=== PATIENT | female | born 2000 | race Hispanic/Latino ===

== ENCOUNTER 2022-05-20 21:37 | Emergency (ER) | payer OTHER ==
--- OUTSIDE RECORDS SUMMARY | 2022-05-20 21:41 | XMS REPORT | Continuity of Care Document ---
:2000 Author Organization [facility] t Address [address] [place] [address] Care Team Providers Name Role Phone Galdino Robles Josiah Primary Care Physician SIRI TORRES Attending Clinician Unavailable Siri Goel Attending Clinician Niurka Clayton MD Attending Clinician Doctor Unassigned, [place] Attending Clinician Unavailable Provider, Kr[facility] Attending Clinician Unavailable NIURKA CLAYTON Attending Clinician Unavailable Radiology Attending Clinician Unavailable RADIOLOGY Attending Clinician Unavailable Payers Payer Name Policy Type Policy Number Effective Date Expiration Date [place] [employer] [place] [id number] 2021 [employer] 00:00:00 Problems Condition Condition Condition Status Onset Resolution Last Treating Co mments Source Name Details Category Date Date Treatment Clinician Date No known No known Disease Unive rs active active ity of problems problems [facility] Allergies, Adverse Reactions, Alerts Allergy Allergy Status Severity Reaction(s) Onset Inactive Treating Comm ents Source Name Type Date Date Clinician NO KNOWN Drug Active Univers ALLERGIE Class ity of S [facility] Social History Social Habit Start Date Stop Date Quantity Comments Source Exposure to 2022-02-27 2022-03-09 Not sure [facility] SARS-CoV-2 (event) 00:00:00 15:53:00 Medica l Branch Alcohol intake 2022-02-22 2022-02-22 0 /d [facility] 00:00:00 00:00:00 Medical Branch Sex Assigned At [birth year] [facility] [place] 00:00:00 00:00:00 Medical Branch Smoking Status Start Date Stop Date Source Never smoker [facility] Medical Branch Medications Ordered Filled Start Stop Current Ordering Indication Dosage Frequency Signature Comments Components Source Medication Medication Date Date Medication? Clinician (SIG) Name Name FLUoxetine Yes 20mg Take 20 mg U nivers (PROZAC) 20 6-06 by mouth ity of mg capsule 16:01: daily. [place] [address] Medical Branch traZODone Yes 50mg Take 50 mg Un matias 50 mg 6-06 by mouth ity of tablet 16:01: at [place] [address] bedtime. Medical Branch FLUoxetine Yes 20mg Take 20 mg U nivers (PROZAC) 20 6-06 by mouth ity of mg capsule 16:01: daily. [address] Branch traZODone Yes 50mg Take 50 mg Un matias 50 mg 6-06 by mouth ity of tablet 16:01: at [place] [address] bedtime. Medical Branch FLUoxetine Yes 20mg Take 20 mg U nivers (PROZAC) 20 6-06 by mouth ity of mg capsule 16:01: daily. [address] Branch traZODone Yes 50mg Take 50 mg Un matias 50 mg 6-06 by mouth ity of tablet 16:01: at [place] [address] bedtime. Medical Branch FLUoxetine Yes 20mg Take 20 mg U nivers (PROZAC) 20 6-06 by mouth ity of mg capsule 16:01: daily. [address] Branch traZODone Yes 50mg Take 50 mg Un matias 50 mg 6-06 by mouth ity of tablet 16:01: at [place] [address] bedtime. Medical Branch FLUoxetine Yes 20mg Take 20 mg U nivers (PROZAC) 20 6-06 by mouth ity of mg capsule 16:01: daily. [address] Branch traZODone Yes 50mg Take 50 mg Un matias 50 mg 6-06 by mouth ity of tablet 16:01: at [place] [address] bedtime. Medical Branch ondansetron Yes [id number] 4mg Take 1 Univers 4 mg 5-22 tablet by ity of disintegrat 00:00: mouth [place] [facility] tablet 00 every 8 Medica l (eight) Branch hours as needed for Nausea and Vomiting (N/V). methocarbam 2022-0 Yes [id number] 500mg Take 1 Univers oL 500 mg 5-22 tablet by ity o f tablet 00:00: mouth 4 [place] 00 (four) Medical times Branch daily. ondansetron 2022-0 Yes [id number] 4mg Take 1 Univers 4 mg 5-22 tablet by ity of disintegrat 00:00: mouth [place] ing tablet 00 every 8 Medica l (eight) Branch hours as needed for Nausea and Vomiting (N/V). methocarbam 2022-0 Yes [id number] 500mg Take 1 Univers oL 500 mg 5-22 tablet by ity o f tablet 00:00: mouth 4 [place] (four) Medical times Branch daily. ondansetron 2022-0 Yes [id number] 4mg Take 1 Univers 4 mg 5-22 tablet by ity of disintegrat 00:00: mouth [place] ing tablet 00 every 8 Medica l (eight) Branch hours as needed for Nausea and Vomiting (N/V). methocarbam 2022-0 Yes [id number] 500mg Take 1 Univers oL 500 mg 5-22 tablet by ity o f tablet 00:00: mouth 4 (four) Medical times Branch daily. ondansetron 2022-0 Yes [id number] 4mg Take 1 Univers 4 mg 5-22 tablet by ity of disintegrat 00:00: mouth [place] ing tablet 00 every 8 Medica l (eight) Branch hours as needed for Nausea and Vomiting (N/V). methocarbam 2022-0 Yes [id number] 500mg Take 1 Univers oL 500 mg 5-22 tablet by ity o f tablet 00:00: mouth 4 [place] 00 (four) Medical times Branch daily. ondansetron 2022-0 Yes [id number] 4mg Take 1 Univers 4 mg 5-22 tablet by ity of disintegrat 00:00: mouth [place] ing tablet 00 every 8 Medica l (eight) Branch hours as needed for Nausea and Vomiting (N/V). methocarbam 2022-0 Yes [id number] 500mg Take 1 Univers oL 500 mg 5-22 tablet by ity o f tablet 00:00: mouth 4 [place] 00 (four) Medical times Branch daily. ondansetron 2022-0 Yes [id number] 4mg Take 1 Univers 4 mg 5-22 tablet by ity of disintegrat 00:00: mouth [place] ing tablet 00 every 8 Medica l (eight) Branch hours as needed for Nausea and Vomiting (N/V). methocarbam 2-0 Yes [id number] 500mg Take 1 Univers oL 500 mg 5-22 tablet by ity o f tablet 00:00: mouth 4 [place] 00 (four) Medical times Branch daily. ondansetron 2-0 Yes [id number] 4mg Take 1 Univers 4 mg 5-22 tablet by ity of disintegrat 00:00: mouth [place] ing tablet 00 every 8 Medica l (eight) Branch hours as needed for Nausea and Vomiting (N/V). methocarbam 2-0 Yes [id number] 500mg Take 1 Univers oL 500 mg 5-22 tablet by ity o f tablet 00:00: mouth 4 [place] 00 (four) Medical times Branch daily. dexmethylph 2014-10 Yes 10mg Take 10 mg Univers enidate 0-09 by mouth ity of (FOCALIN 14:04: daily. [place] XR) 10 mg 40 Medical 24 hr Branch capsule dexmethylph 2014-10 Yes 10mg Take 10 mg Univers enidate 0-09 by mouth ity of (FOCALIN 09:04: daily. [place] XR) 10 mg 40 Medical 24 hr Branch capsule dexmethylph 2014-10 Yes 10mg Take 10 mg Univers enidate 0-09 by mouth ity of (FOCALIN 09:04: daily. [place] XR) 10 mg 40 Medical 24 hr Branch capsule dexmethylph 2014-10 Yes 10mg Take 10 mg Univers enidate 0-09 by mouth ity of (FOCALIN 09:04: daily. [place] XR) 10 mg 40 Medical 24 hr Branch capsule dexmethylph 2014-10 Yes 10mg Take 10 mg Univers enidate 0-09 by mouth ity of (FOCALIN 09:04: daily. [place] XR) 10 mg 40 Medical 24 hr Branch capsule dexmethylph 2014-10 Yes 10mg Take 10 mg Univers enidate 0-09 by mouth ity of (FOCALIN 09:04: daily. [place] XR) 10 mg 40 Medical 24 hr Branch capsule dexmethylph 2014-10 Yes 10mg Take 10 mg Univers enidate 0-09 by mouth ity of (FOCALIN 09:04: daily. [place] XR) 10 mg 40 Medical 24 hr Branch capsule dexmethylph 2014- Yes 10mg Take 10 mg Univers enidate 0-09 by mouth ity of (FOCALIN 09:04: daily. [place] XR) 10 mg 40 Medical 24 hr Branch capsule Vital Signs Vital Name Observation Time Observation Value Comments Source Systolic blood 2022-03-09 21:02:00 96 mm[Hg] Univer sity of [facility] Diastolic blood 2022-03-09 21:02:00 64 mm[Hg] Unive rsity of [facility] Heart rate 2022-03-09 21:02:00 77 /min Universi ty of [facility] Body temperature 2022-03-09 21:02:[address] [facility] ersity [facility] Respiratory rate 2022-03-09 21:02:00 17 /min Univ ersity [facility] Body height 2022-03-09 21:02:00 154.9 cm [facility] [place] Body weight 2022-03-09 21:02:00 50.44 kg [facility] [place] BMI 2022-03-09 21:02:00 21.01 kg/m2 [facility] [place] [facility] Oxygen saturation in 2022-03-09 21:02:00 98 /min University of Arterial blood by [facility] Pulse oximetry Branch Systolic blood 2022-02-22 17:04:00 109 mm[Hg] Univer sity of [facility] Diastolic blood 2022-02-22 17:04:00 72 mm[Hg] Unive rsity of [facility] Heart rate 2022-02-22 17:04:00 72 /min Universi ty of [facility] Body temperature 2022-02-22 17:04:[address] [facility] ersity [facility] Respiratory rate 2022-02-22 17:04:00 17 /min Univ ersity [facility] Body height 2022-02-22 17:04:00 154.9 cm [facility] [place] [facility] Body weight 2022-02-22 17:04:00 56.7 kg [facility] [place] [facility] BMI 2022-02-22 17:04:00 23.62 kg/m2 Universi ty of [facility] Oxygen saturation in 2022-02-22 17:04:00 100 /min University of Arterial blood by [facility] Pulse oximetry Branch Procedures Procedure Date / Time Performing Clinician Source Performed XR TIBIA FIBULA 2 VW 2022-03-09 21:17:00 Siri Torres [facility] RIGHT Medical Branch XR ANKLE 3+ VW RIGHT 2022-03-09 21:16:00 Siri Torres [facility] ASSIGNMENT OF BENEFITS 2022-03-09 20:55:20 Doctor Unassigned, No [facility] Name Medical Branch US PELVIS COMPLETE WITH 2020-06-06 16:59:56 Requisition, Paper U [facility] Start End Encounter Admission Attending Care Care Encounter Source Date/Time Date/Time Type Type Clinicians Facility Department ID 2022-03-09 2022-03-09 Outpatient R [facility] [id number] [facility] 16:07:54 23:59:00 SIRI de leon [facility] 2022-03-09 2022-03-09 Hospital [facility] [id number] Univers 16:07:54 23:59:00 Encounter [facility] [id number] ity of [place] 4.2.7.2.686 Dav as KELLY?BLEA [id number] [facility] [address] [place] MEDICAL OFFICE BUILDING 2022-03-09 2022-03-09 Hospital [facility] [id number] [facility] 16:07:54 23:59:00 Encounter [facility] 350.1.13.10 ity of [place] 4.2.7.2.686 Dav as KELLY?BLEA [id number] [facility] [address] [place] MEDICAL OFFICE BUILDING 2022-03-09 2022-03-09 [facility] [id number] [id number] Univers 16:00:00 16:24:43 Care Niurka Clayton HEALTH [id number] ity of [place] 4.2.7.2.686 Dav as KELLY?BLEA [id number] [facility] [address] [place] MEDICAL OFFICE BUILDING 2022-03-09 2022-03-09 Outpatient R [facility] [id number] Univers 16:00:00 16:00:00 [id number] ity of [facility] 2022-03-09 2022-03-09 Orders Doctor NICOLE [id number] Univers 00:00:00 00:00:00 Only Unassigned, MAKENNA 350.1.13.10 ity of [place] [facility] 4.2.7.2.686 Dav as [id number] [address] 2022-03-09 2022-03-09 Letter Provider, [facility] [id number] Univers 00:00:00 00:00:00 (Out) Ang Db HEALTH 350.1.13.10 it y of [facility]gent [facility] [place] 4.2.7.2.686 [place] KELLY?BLEA [id number] [address] MEDICAL OFFICE BUILDING 2022-03-09 2022-03-09 Letter Provider, [facility] [id number] Univers 00:00:00 00:00:00 (Out) Ang Db HEALTH 350.1.13.10 it y of Urgent Care [place] 4.2.7.2.686 [place] KELLY?BLEA [id number] [address] MEDICAL OFFICE BUILDING 2022-02-22 2022-02-22 Outpatient R KEVIN [facility] [id number] Univers 12:00:00 12:21:56 NIURKA ity [facility] 2022-02-22 2022-02-22 [facility] [id number] Univers 12:00:00 12:21:56 Care Niurka HEALTH 350.1.13.10 it y of [place] 4.2.7.2.686 Dav as KELLY?BLEA [id number] [address] MEDICAL OFFICE BUILDING 2022-02-22 2022-02-22 Outpatient R [facility] [id number] Univers 12:00:00 12:00:00 [id number] ity of [facility] 2020-06-06 2020-06-06 Hospital Radiology [facility] [id number] Univers 11:00:00 23:59:00 Encounter [place] 350.1.13.10 ity of [place] 4.2.7.2.686 [facility] [id number] [facility] 806 Branch 2020-06-06 2020-06-06 Outpatient R RADIOLOGY [facility] [id number] Univers 00:00:00 00:00:00 ity of [facility] Results Test Description Test Time Test Comments Results Result Sourc e Comments US PELVIS HISTORY: Abnormal Univers ity of COMPLETE WITH 3 uterine bleeding. [facility] TRANSVAGINAL 17:07:08 TECHNIQUE: Both [place] transabdominal and transvaginal pelvic ultrasound studieswere completed by the technologist. FINDINGS: Uterus is of normal size and shape, measures approximately 6.8 x2.7 x 4.0 cm in size with homogeneous echo texture of the myometrium.Endometr ial echo complex is 5 mm. No free fluid in the cul-de-sac. Smallamount of fluid noted retained in the endocervical canal. Right ovary is 3.0 x 2.3 x 1.6 cm (6.22 ml) and left ovary is 2.3 x 1.6 x1.2 cm (2.45 ml). Small follicles are present in both ovaries consistentwith physiologic changes. CONCLUSIONS: Small amount of fluid noted within the endocervical canal.This may not be of any clinical significance. Please correlate forpossibility of cervicitis. Otherwise normal study. [facility], Radiant Results Inft User - 06/06/2020 12:08 PM CDTHISTORY: Abnormal uterine bleeding.TECHNIQUE: Both transabdominal and transvaginal pelvic ultrasound studieswere completed by the technologist.FINDIN GS: Uterus is of normal size and shape, measures approximately 6.8 x2.7 x 4.0 cm in size with homogeneous echo texture of the myometrium.Endometr ial echo complex is 5 mm. No free fluid in the cul-de-sac. Smallamount of fluid noted retained in the endocervical canal.Right ovary is 3.0 x 2.3 x 1.6 cm (6.22 ml) and left ovary is 2.3 x 1.6 x1.2 cm (2.45 ml). Small follicles are present in both ovaries consistentwith physiologic changes.CONCLUSIONS : Small amount of fluid noted within the endocervical canal.This may not be of any clinical significance. Please correlate forpossibility of cervicitis. Otherwise normal study.
--- NOTE | 2022-05-20 22:34 | EDPHYS ---
Physician Documentation [facility] Name: Niya Ojeda Age: 21 yrs Sex: Female : 2000 Arrival Date: 05/20/2022 Time: 21:43 Bed 10 Private MD: ED Physician Teddy Quiroz HPI: 05/20 22:23 This 21 yrs old Female presents to ER via Ambulatory with complaints of jmm Scratched by Alireza Nail. 22:23 The patient or guardian complains of injury, pain. Onset: The symptoms/episode jmm began/occurred acutely, just prior to arrival. Is a 21-year-old female with no Tracey conditions presents emerged department with a puncture wound to the right wrist. 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 Denies other injury. Patient is unsure on tetanus immunization.. 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 - Social history:: Smoking status: Reported history of juuling and/or vaping. ROS: 22:23 Constitutional: Negative for fever, chills, and weight loss, Cardiovascular: Negative jmm for chest pain, palpitations, and edema, Respiratory: Negative for shortness of breath, cough, wheezing, and pleuritic chest pain. 22:23 Skin: Positive for puncture. 22:23 All other systems are negative. Exam: 22:23 Constitutional: This is a well developed, well nourished patient who is awake, alert, jmm and in no acute distress. Head/Face: atraumatic. Eyes: EOMI, no conjunctival erythema appreciated ENT: Moist Mucus Membranes Neck: Trachea midline, Supple Chest/axilla: Normal chest wall appearance and motion. Cardiovascular: Regular rate and rhythm. No edema appreciated Respiratory: Normal respirations, no respiratory distress appreciated Abdomen/GI: Non distended Back: Normal ROM 22:23 Skin: Small puncture wound noted to the volar region of the right wrist. 22:23 Neuro: Orientation: is normal, Mentation: is normal, Memory: is normal. 22:23 Psych: Behavior/mood is pleasant, cooperative. Vital Signs: 22:13 BP 124 / 72; Pulse 75; Resp 18; Temp 98.8; Pulse Ox 100% ; Weight 52.16 kg; Height 5 kd3 ft. 1 in. (154.94 cm); Pain 0/10; 22:13 Body Mass Index 21.73 (52.16 kg, 154.94 cm) kd3 MDM: 22:23 Patient medically screened. [facility] 22:32 Data reviewed: vital signs, nurses notes. Counseling: I had a detailed discussion with prosper the patient and/or guardian regarding: the historical points, exam findings, and any diagnostic results supporting the discharge/admit diagnosis, the need for outpatient follow up, to return to the emergency department if symptoms worsen or persist or if there are any questions or concerns that arise at home. ED course: Patient is alert nontoxic appearance in the ER. Patient treated with oral antibiotics prophylactic care. Patient advised follow-up PCP and otherwise given strict return precautions. Patient understood agrees plan of care.. Administered Medications: 22:41 Drug: Tetanus-Diphtheria Toxoid Adult 0.5 ml {Slunk Skin Curer: [employer]the[employer]. Exp: kd3 12/19/2022. Lot #: [id number]. } Route: IM; Site: left deltoid; 22:41 Follow up: Response: No adverse reaction kd3 Disposition: 05/21 03:33 Co-signature as Attending Physician, Teddy Quiroz MD. rn Disposition Summary: 05/20/22 22:33 Discharge Ordered Location: Home [facility] Condition: Stable [facility] Diagnosis - Puncture wound of the right wrist [facility] Followup: [facility] - With: Private Physician - When: 2 - 3 days - Reason: Recheck today's complaints, Continuance of care, Re-evaluation by your physician Discharge Instructions: - Discharge Summary Sheet [facility] - Puncture Wound [facility] Forms: - Medication Reconciliation Form [facility] - Thank You Letter [facility] - Antibiotic Education [facility] - Prescription Opioid Use [facility] Prescriptions: - Cephalexin 500 mg Oral Capsule - take 1 capsule by ORAL route every 8 hours for 7 days; 21 capsule; Refills: 0, [facility] Product Selection Permitted Signatures: Mickail, Isacc, PA PA jmm Quiroz, Teddy, MD MD rn Dane, Madeleine, RN RN kd3
--- NOTE | 2022-05-20 22:34 | ER ---
Nurse's Notes [facility] Name: Niya Ojeda Age: 21 yrs Sex: Female : 2000 Arrival Date: 05/20/2022 Time: 21:43 Bed 10 Private MD: Diagnosis: Puncture wound of the right wrist Presentation: 05/20 22:13 Chief complaint: Patient states: my boyfriend put my keys in the dumpster [facility] and a nadya nail poked my on the right wrist. Coronavirus screen: Vaccine status: Patient reports receiving the 1st dose of the Covid vaccine. Ebola Screen: No symptoms or risks identified at this time. Initial Sepsis Screen: Does the patient meet any 2 criteria? No. Patient's initial sepsis screen is negative. Does the patient have a suspected source of infection? No. Patient's initial sepsis screen is negative. Risk Assessment: Do you want to hurt yourself or someone else? Patient reports no desire to harm self or others. Onset of symptoms was May 20, 2022. 22:13 Method Of Arrival: Ambulatory kd3 22:13 Acuity: GIA 3 kd3 Triage Assessment: 22:15 General: Appears in no apparent distress. Behavior is calm, cooperative. Pain: Denies kd3 pain. 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 - Social history:: Smoking status: Reported history of juuling and/or vaping. Screenin:17 Abuse screen: Denies threats or abuse. Denies injuries from another. Nutritional kd3 screening: No deficits noted. Tuberculosis screening: No symptoms or risk factors identified. Fall Risk None identified. Vital Signs: 22:13 BP 124 / 72; Pulse 75; Resp 18; Temp 98.8; Pulse Ox 100% ; Weight 52.16 kg; Height 5 kd3 ft. 1 in. (154.94 cm); Pain 0/10; 22:13 Body Mass Index 21.73 (52.16 kg, 154.94 cm) kd3 ED Course: 21:43 Patient arrived in ED. ja2 21:49 Isacc De Jesus PA is PHCP. [facility] 21:49 Teddy Quiroz MD is Attending Physician. [facility] 22:11 Madeleine Vela, RN is Primary Nurse. kd3 22:15 Triage completed. kd3 22:15 Arm band placed on left wrist. kd3 22:17 Patient has correct armband on for positive identification. kd3 22:17 No provider procedures requiring assistance completed. kd3 22:41 Patient did not have IV access during this emergency room visit. kd3 Administered Medications: 22:41 Drug: Tetanus-Diphtheria Toxoid Adult 0.5 ml {Land Examiner: [employer]. Exp: kd3 12/19/2022. Lot #: [id number]. } Route: IM; Site: left deltoid; 22:41 Follow up: Response: No adverse reaction kd3 Medication: 22:42 Vaccine Information Statement (VIS) provided today. Questions and/or concerns kd3 addressed. VIS edition date: October 2022. Outcome: 22:33 Discharge ordered by . jm 22:41 Discharged to home ambulatory. kd3 22:41 Condition: stable 22:41 Discharge instructions given to patient, Instructed on discharge instructions, follow up and referral plans. Demonstrated understanding of instructions, follow-up care, medications, Prescriptions given X 1. 22:42 Patient left the ED. kd3 Signatures: Isacc De Jesus PA PA jmm Alexander, Jessica [facility] Madeleine Vela, RN RN kd3
[2022-05-20] MEDS ORDERED: TETANUS & DIPHTHERIA TOX,ADULT 0.5 ML VIAL ONE (22:46)
[2022-05-21 01:39] VITALS: BP 124/72; TEMP 98.8; O2SAT 100
== END 2022-05-20 22:42 | disposition home or self-care (01) ==
LOC: ER 21:37
DX: S61.531A Puncture wound without foreign body of right wrist, initial encounter (principal); F90.9 Attention-deficit hyperactivity disorder, unspecified type; Z23 Encounter for immunization
CPT/HCPCS: 90714

== ENCOUNTER 2022-08-19 17:40 | Emergency (ER) | payer OTHER ==
--- OUTSIDE RECORDS SUMMARY | 2022-08-19 17:42 | XMS REPORT | Continuity of Care Document ---
:2000 Author Organization [facility] t Address [address] [place] [address] Care Team Providers Name Role Phone Galdino Robles Josiah Primary Care Physician SIRI TORRES Attending Clinician Unavailable Siri Goel Attending Clinician Niurka Clayton MD Attending Clinician Doctor Unassigned, [place] Attending Clinician Unavailable Provider, [facility] Attending Clinician Unavailable NIURKA CLAYTON Attending Clinician Unavailable Radiology Attending Clinician Unavailable RADIOLOGY Attending Clinician Unavailable Payers Payer Name Policy Type Policy Number Effective Date Expiration Date [employer] [id number] 2021 [employer] 00:00:00 Problems Condition Condition Condition Status Onset Resolution Last Treating Co mments Source Name Details Category Date Date Treatment Clinician Date No known No known Disease Unive rs active active ity of problems problems [facility] Allergies, Adverse Reactions, Alerts Allergy Allergy Status Severity Reaction(s) Onset Inactive Treating Comm ents Source Name Type Date Date Clinician NO KNOWN Drug Active Univers ALLERGIE Class ity of S [facility] Social History Social Habit Start Date Stop Date Quantity Comments Source Exposure to 2022-02-27 2022-03-09 Not sure [facility] SARS-CoV-2 (event) 00:00:00 15:53:00 Medica l Branch Alcohol intake 2022-02-22 2022-02-22 0 /d [facility] 00:00:00 00:00:00 Medical Branch Sex Assigned At [birth year] [facility] [place] 00:00[facility] 00:00:00 Medical Branch Smoking Status Start Date Stop Date Source Never smoker [facility] Medical Branch Medications Ordered Filled Start Stop Current Ordering Indication Dosage Frequency Signature Comments Components Source Medication Medication Date Date Medication? Clinician (SIG) Name Name FLUoxetine Yes 20mg Take 20 mg U nivers (PROZAC) 20 6-06 by mouth ity of mg capsule 16:01: daily. [place] [address] Medical Branch traZODone Yes 50mg Take 50 mg Un matias 50 mg 6-06 by mouth ity of tablet 16:01: at [place] [address] bedtime. Medical Branch FLUoxetine Yes 20mg Take 20 mg U nivers (PROZAC) 20 6-06 by mouth ity of mg capsule 16:01: daily. [address] Branch traZODone Yes 50mg Take 50 mg Un amtias 50 mg 6-06 by mouth ity of tablet 16:01: at [place] [address] bedtime. Medical Branch FLUoxetine Yes 20mg Take 20 mg U nivers (PROZAC) 20 6-06 by mouth ity of mg capsule 16:01: daily. [address] Branch traZODone Yes 50mg Take 50 mg Un matias 50 mg 6-06 by mouth ity of tablet 16:01: at [place] [address] bedtime. Medical Branch FLUoxetine Yes 20mg Take 20 mg U nivers (PROZAC) 20 6-06 by mouth ity of mg capsule 16:01: daily. [address] Branch traZODone Yes 50mg Take 50 mg Un matias 50 mg 6-06 by mouth ity of tablet 16:01: at [place] [address] bedtime. Medical Branch FLUoxetine Yes 20mg Take 20 mg U nivers (PROZAC) 20 6-06 by mouth ity of mg capsule 16:01: daily. [address] Branch traZODone Yes 50mg Take 50 mg Un matias 50 mg 6-06 by mouth ity of tablet 16:01: at [place] [address] bedtime. Medical Branch ondansetron Yes [id number] 4mg Take 1 Univers 4 mg 5-22 tablet by ity of disintegrat 00:00: mouth [place] [facility] tablet 00 every 8 Medica l (eight) Branch hours as needed for Nausea and Vomiting (N/V). methocarbam 2022-0 Yes [id number] 500mg Take 1 Univers oL 500 mg 5-22 tablet by ity o f tablet 00:00: mouth 4 [place] 00 (four) Medical times Branch daily. ondansetron 2022-0 Yes [id number] 4mg Take 1 Univers 4 mg 5-22 tablet by ity of disintegrat 00:00: mouth [place] ing tablet 00 every 8 Medica l (eight) Branch hours as needed for Nausea and Vomiting (N/V). methocarbam 2022-0 Yes [id number] 500mg Take 1 Univers oL 500 mg 5-22 tablet by ity o f tablet 00:00: mouth 4 [place] (four) Medical times Branch daily. ondansetron 2022-0 Yes [id number] 4mg Take 1 Univers 4 mg 5-22 tablet by ity of disintegrat 00:00: mouth [place] ing tablet 00 every 8 Medica l (eight) Branch hours as needed for Nausea and Vomiting (N/V). methocarbam 2022-0 Yes [id number] 500mg Take 1 Univers oL 500 mg 5-22 tablet by ity o f tablet 00:00: mouth 4 (four) Medical times Branch daily. ondansetron 2022-0 Yes [id number] 4mg Take 1 Univers 4 mg 5-22 tablet by ity of disintegrat 00:00: mouth [place] ing tablet 00 every 8 Medica l (eight) Branch hours as needed for Nausea and Vomiting (N/V). methocarbam 2022-0 Yes [id number] 500mg Take 1 Univers oL 500 mg 5-22 tablet by ity o f tablet 00:00: mouth 4 [place] 00 (four) Medical times Branch daily. ondansetron 2022-0 Yes [id number] 4mg Take 1 Univers 4 mg 5-22 tablet by ity of disintegrat 00:00: mouth [place] ing tablet 00 every 8 Medica l (eight) Branch hours as needed for Nausea and Vomiting (N/V). methocarbam 2022-0 Yes [id number] 500mg Take 1 Univers oL 500 mg 5-22 tablet by ity o f tablet 00:00: mouth 4 [place] 00 (four) Medical times Branch daily. ondansetron 2022-0 Yes [id number] 4mg Take 1 Univers 4 mg 5-22 tablet by ity of disintegrat 00:00: mouth [place] ing tablet 00 every 8 Medica l (eight) Branch hours as needed for Nausea and Vomiting (N/V). methocarbam 2-0 Yes [id number] 500mg Take 1 Univers oL 500 mg 5-22 tablet by ity o f tablet 00:00: mouth 4 [place] 00 (four) Medical times Branch daily. ondansetron 2-0 Yes [id number] 4mg Take 1 Univers 4 mg 5-22 tablet by ity of disintegrat 00:00: mouth [place] ing tablet 00 every 8 Medica l (eight) Branch hours as needed for Nausea and Vomiting (N/V). methocarbam 2-0 Yes [id number] 500mg Take 1 Univers oL 500 mg [...] 2022-03-09 21:02:00 96 mm[Hg] Univer sity of [facility] Diastolic blood 2022-03-09 21:02:00 64 mm[Hg] Unive rsity of [facility] Heart rate 2022-03-09 21:02:00 77 /min Universi ty of [facility] Body temperature 2022-03-09 21:02:00 36.94 [facility] ersity [facility] Respiratory rate 2022-03-09 21:02:00 17 /min Univ ersity [facility] Body height 2022-03-09 21:02:00 154.9 cm Universi ty of [facility] Body weight 2022-03-09 21:02:00 50.44 kg [facility] BMI 2022-03-09 21:02:00 21.01 kg/m2 [facility] Oxygen saturation in 2022-03-09 21:02:00 98 /min University of Arterial blood by [facility] Pulse oximetry Branch Systolic blood 2022-02-22 17:04:00 109 mm[Hg] Univer sity of [facility] Diastolic blood 2022-02-22 17:04:00 72 mm[Hg] Unive rsity of [facility] Heart rate 2022-02-22 17:04:00 72 /min Universi ty of [facility] Body temperature 2022-02-22 17:04:00 36.78 [facility] ersity [facility] Respiratory rate 2022-02-22 17:04:00 17 /min Univ ersity [facility] Body height 2022-02-22 17:04:00 154.9 cm [facility]i [facility] Body weight 2022-02-22 17:04:00 56.7 kg [facility] [place] [facility] BMI 2022-02-22 17:04:00 23.62 kg/m2 Universi ty of [facility] Oxygen saturation in 2022-02-22 17:04:00 100 /min University of Arterial blood by [facility] Pulse oximetry Branch Procedures Procedure Date / Time Performing Clinician Source Performed XR TIBIA FIBULA 2 VW 2022-03-09 21:17:00 Siri Torres [facility] RIGHT Medical Branch XR ANKLE 3+ VW RIGHT 2022-03-09 21:16:00 Siri Torres [facility] ASSIGNMENT OF BENEFITS 2022-03-09 20:55:20 Doctor Unassigned, No [facility] Name Medical Branch US PELVIS COMPLETE WITH 2020-06-06 16:59:56 Requisition, Paper U [facility] Encounters Start End Encounter Admission Attending Care Care Encounter Source Date/Time Date/Time Type Type Clinicians Facility Department ID 2022-03-09 2022-03-[address] [facility] [id number] [facility] [place] [facility] 16:07:54 23:59:00 SIRI holcomb f [facility] 2022-03-09 2022-03-09 [facility] [id number] Univers 16:07:54 23:59:00 Encounter [facility] [id number] ity of [place] 4.2.7.2.686 Dav as KELLY?BLEA [id number] [facility] [address] MEDICAL OFFICE [facility] 2022-03-09 2022-03-09 Hospital [facility] [id number] [facility] [place] [facility] 16:07:54 23:59:00 Encounter [facility] [id number] ity of [place] 4.2.7.2.686 Dav as KELLY?BLEA [id number] [facility] [address] MEDICAL OFFICE BUILDING 2022-03-09 2022-03-09 [facility] [id number] [id number] Univers 16:00:00 16:24:43 Care Niurka Clayton [facility] [id number] ity of [place] 4.2.7.2.686 Dav as KELLY?BLEA [id number] [facility] [address] MEDICAL OFFICE BUILDING 2022-03-09 2022-03-09 Orders Doctor RIVERA [id number] Univers 00:00:00 00:00:00 Only Unassigned, MAKENNA [id number] ity of [place] [facility] 4.2.7.2.686 Dav as [id number] [facility] [address] 2022-03-09 2022-03-09 Letter Provider, [facility] [id number] Univers 00:00:00 00:00:00 (Out) Ang Db HEALTH [id number] it y of Urgent Care [place] [id number] [place] KELLY?BLEA [id number] In [place]car[place] [address] MEDICAL OFFICE [facility] 2022-03-09 2022-03-09 Letter Provider, [facility] [id number] Univers 00:00:00 00:00:00 (Out) Ang Db HEALTH [id number] it y [facility] [id number] [place] KELLY?BLEA [id number] [address] OFFICE [facility] 2022-02-22 2022-02-22 [facility] [id number] Univers 12:00:00 12:21:56 NIURKA ity [facility] 2022-02-22 2022-02-22 [facility] [id number] Univers 12:00:00 12:21:56 Care Niurka HEALTH [id number] it y of [facility] [id number] Dav as KELLY?BLEA [id number] [address] MEDICAL OFFICE [facility] 2020-06-06 2020-06-06 Hospital Radiology [facility] [id number] Univers 11:00:00 23:59:00 Encounter [place] [id number] ity [place]7.2.686 [place] [id number] [facility] [address] 2020-06-06 2020-06-06 Outpatient R RADIOLOGY [facility] [id number] Univers 00:00:00 00:00:00 ity of [facility] Results Test Description Test Time Test Comments Results Result Sourc e Comments US PELVIS HISTORY: Abnormal Univers ity of COMPLETE WITH 3 uterine bleeding. Keron barrera Medical TRANSVAGINAL 17:07:08 TECHNIQUE: Both Branch transabdominal and transvaginal pelvic ultrasound studieswere completed [...] correlate forpossibility of cervicitis. Otherwise normal study. [facility], Radiant Results Inft User - 06/06/2020 [...]
[2022-08-19 18:52] LABS: SARS-COV-2 RT PCR NEGATIVE (NEGATIVE)
--- NOTE | 2022-08-19 19:19 | EDPHYS ---
Physician Documentation [facility] Name: Niya Ojeda Age: 22 yrs Sex: Female : 2000 Arrival Date: 08/19/2022 Time: 17:41 Bed IW3 Private MD: ED Physician Savage Underwood HPI: 08/19 19:17 This 22 yrs old Female presents to ER via Ambulatory with complaints of Flu kb Symptoms. 19:17 The patient or guardian reports cough. Onset: The symptoms/episode began/occurred this kb morning. Severity of symptoms: At their worst the symptoms were mild, moderate, in the emergency department the symptoms are unchanged. Modifying factors: The symptoms are alleviated by nothing, the symptoms are aggravated by nothing. Associated signs and symptoms: Pertinent positives: nausea. The patient has not experienced similar symptoms in the past. The patient has not recently seen a physician. Pt reports cough, headache, bodyaches, chills, and nausea since 0300. 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 - Social history:: Smoking status: Reported history of juuling and/or vaping. Patient denies any tobacco usage or history of. ROS: 19:16 Cardiovascular: Negative for chest pain, palpitations, and edema. kb 19:16 Constitutional: Positive for body aches, chills, malaise. 19:16 Respiratory: Positive for cough. 19:16 Abdomen/GI: Positive for nausea. 19:16 Neuro: Positive for headache. 19:16 All other systems are negative. Exam: 19:16 Constitutional: This is a well developed, well nourished patient who is awake, alert, kb and in no acute distress. Head/Face: Normocephalic, atraumatic. ENT: Moist Mucous membranes Cardiovascular: Regular rate and rhythm with a normal S1 and S2. No gallops, murmurs, or rubs. No pulse deficits. Respiratory: Respirations even and unlabored. No increased work of breathing. Talking in full sentences Abdomen/GI: Soft, non-tender. No distention Skin: Warm, dry with normal turgor. Normal color. MS/ Extremity: Pulses equal, no cyanosis. Neurovascular intact. Full, normal range of motion. Neuro: Awake and alert, GCS 15, oriented to person, place, time, and situation. Moves all extremities. Normal gait. Psych: Awake, alert, with orientation to person, place and time. Behavior, mood, and affect are within normal limits. Vital Signs: 17:52 BP 118 / 70; Pulse 95; Resp 17; Temp 97.8; Pulse Ox 99% ; Weight 54.88 kg; Height 5 ft. ll1 1 in. (154.94 cm); Pain 10/10; 17:52 Body Mass Index 22.86 (54.88 kg, 154.94 cm) ll1 MDM: 17:48 Patient medically screened. kb 19:17 Data reviewed: vital signs, nurses notes. Data interpreted: Pulse oximetry: on room air kb is 99 %. Interpretation: normal. Counseling: I had a detailed discussion with the patient and/or guardian regarding: the historical points, exam findings, and any diagnostic results supporting the discharge/admit diagnosis, lab results, the need for outpatient follow up, a family practitioner, to return to the emergency department if symptoms worsen or persist or if there are any questions or concerns that arise at home. 08/19 17:48 Order name: COVID-19/FLU A+B/RSV; Complete Time: 19:16 kb Administered Medications: No medications were administered Disposition: 08/20 09:24 Co-signature as Attending Physician, Savage Underwood MD I agree with the assessment and rich plan of care. Disposition Summary: 08/19/22 19:18 Discharge Ordered Location: Home kb Condition: Stable kb Diagnosis - Influenza due to identified novel influenza A virus kb Followup: kb - With: Emergency Department - When: As needed - Reason: Worsening of condition Followup: kb - With: Private Physician - When: 2 - 3 days - Reason: Recheck today's complaints, Continuance of care, Re-evaluation by your physician Discharge Instructions: - Discharge Summary Sheet kb - Influenza, Pediatric, [id number] kb Forms: - Medication Reconciliation Form kb - Thank You Letter kb - Antibiotic Education kb - Prescription Opioid Use kb Prescriptions: - Tamiflu 75 mg Oral Capsule - take 1 tablet by ORAL route every 12 hours for 5 days; 10 tablet; Refills: 0, kb Product Selection Permitted Signatures: Dispatcher [employer] Meghann Chung, CHAPINC ALTHEA-Savage Cardona MD MD cha Lewis, Lynsay, RN RN ll1 Madeleine Vela RN RN kd3
--- NOTE | 2022-08-19 19:19 | ER ---
Nurse's Notes [facility] Name: Niya Ojeda Age: 22 yrs Sex: Female : 2000 Arrival Date: 08/19/2022 Time: 17:41 Bed IW3 Private MD: Diagnosis: Influenza due to identified novel influenza A virus Presentation: 08/19 17:52 Chief complaint: Patient states: Body aches, chill, LOPEZ, nausea, and cough for 1 days. ll1 Coronavirus screen: Vaccine status: Patient reports receiving the 1st dose of the Covid vaccine. Client denies travel out of the [place] in the last 14 days. chills, congestion, fatigue, fever, headache, nausea, Client presents with at least one sign or symptom that may indicate coronavirus-19. Standard/surgical mask placed on the client. Ebola Screen: Patient denies travel to an Ebola-affected area in the 21 days before illness onset. Initial Sepsis Screen: Does the patient meet any 2 criteria? No. Patient's initial sepsis screen is negative. Does the patient have a suspected source of infection? Yes: Productive cough/pneumonia. Risk Assessment: Do you want to hurt yourself or someone else? Patient reports no desire to harm self or others. Onset of symptoms was August 19, 2022. 17:52 Method Of Arrival: Ambulatory ll1 17:52 Acuity: GIA 4 ll1 Triage Assessment: 17:53 General: Appears in no apparent distress. Behavior is calm, cooperative, appropriate ll1 for age. Pain: Complains of pain in head Quality of pain is described as aching. EENT: Reports nasal congestion. Neuro: Reports headache. Respiratory: Reports cough that is. 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 - Social history:: Smoking status: Reported history of juuling and/or vaping. Patient denies any tobacco usage or history of. Screenin:32 Abuse screen: Denies threats or abuse. Denies injuries from another. Nutritional kd3 screening: No deficits noted. Tuberculosis screening: No symptoms or risk factors identified. Fall Risk None identified. Assessment: 19:33 General: Appears ill, Behavior is calm, cooperative. Neuro: Level of Consciousness is kd3 awake, alert, obeys commands, Oriented to person, place, time, situation. Cardiovascular: Patient's skin is warm and dry. Respiratory: Airway is patent Trachea midline Respiratory effort is even, unlabored, Respiratory pattern is regular, symmetrical. Vital Signs: 17:52 BP 118 / 70; Pulse 95; Resp 17; Temp 97.8; Pulse Ox 99% ; Weight 54.88 kg; Height 5 ft. ll1 1 in. (154.94 cm); Pain 10/10; 17:52 Body Mass Index 22.86 (54.88 kg, 154.94 cm) ll1 ED Course: 17:41 Patient arrived in ED. as 17:41 Meghann Howard FNP-C is [facility]. kb 17:41 Savage Underwood MD is Attending Physician. kb 17:53 Triage completed. ll1 17:53 Arm band placed on. ll1 17:54 COVID-19/FLU A+B/RSV Sent. ll1 18:20 COVID-19/FLU A+B/RSV Sent. jl7 19:32 Madeleine Vela, RN is Primary Nurse. kd3 19:32 Patient has correct armband on for positive identification. kd3 19:32 No provider procedures requiring assistance completed. Patient did not have IV access kd3 during this emergency room visit. Administered Medications: No medications were administered Medication: 19:32 VIS not applicable for this client. kd3 Outcome: 19:18 Discharge ordered by . kb 19:32 Discharged to home ambulatory. kd3 19:32 Condition: stable 19:32 Discharge instructions given to patient, Instructed on discharge instructions, follow up and referral plans. Demonstrated understanding of instructions, follow-up care, medications, Prescriptions given X 1. 19:33 Patient left the ED. kd3 Signatures: Meghann Howard FNP-C FNP-Ckb Martinez, Amelia as Leal, Jahala, RN RN jl7 Zenaida Delgado RN RN 1 Madeleine Vela RN RN kd3
[2022-08-19 20:00] VITALS: BP 118/70; TEMP 97.8; O2SAT 99
== END 2022-08-19 19:33 | disposition home or self-care (01) ==
LOC: ER 17:40
DX: J10.1 Influenza due to other identified influenza virus with other respiratory manifestations (principal); Z20.822 Contact with and (suspected) exposure to COVID-19
CPT/HCPCS: 0241U; 99283